=== PATIENT | male | born 1980 | race American Indian/Alaskan Native ===

== ENCOUNTER 2018-03-30 19:49 | Emergency (ER) | payer SELFPAY ==
[2018-03-30 20:13] VITALS: BP 132/87
== END 2018-03-31 00:29 | disposition left against medical advice (07) ==
LOC: ED 19:49
DX: K08.89 Other specified disorders of teeth and supporting structures (principal); Z53.21 Procedure and treatment not carried out due to patient leaving prior to being seen by health care provider